=== PATIENT | female | born 1985 | race Two or more races ===

== ENCOUNTER 2022-10-14 15:45 | Outpatient (AMB) | payer OTHER, SELFPAY ==
--- NOTE | 2022-10-14 16:20 | HO.SPINEOV ---
Intake Intake Visit Reasons: Back pain Assessment & Plan Assessment & Plan (1) Lumbago: Code(s): M54.50 - Low back pain, unspecified Plan Asif is a 37-year-old female who is an established patient of ours from [facility] who presents today to discuss her ongoing symptoms which she states are the same since she last saw Dr. Browning in April of this year. She reports no progression of symptoms, and no interest in surgery at this time. We discussed her lumbar spondylolisthesis again, and discussed the possibility of a right L5 foraminotomy. She is not agreeable to this. She states that she continues to have the same low back pain with the same numbness and tingling over the top of her R foot. She states she is no longer going to physical therapy. During our visit today she expressed concerns about her current housing situation, stating that the state is attempting to move her from a 1st floor apartment to a 6th floor apartment and she was hoping to obtain documentation from our office stating that she cannot ambulate up 6 flights of stairs daily. She was encouraged to bring her documentation from [facility] (which she has with her) to her primary care physician who could provide such a letter. This patient was seen alongside Dr. Browning. In summary, this patient has a grade 2 spondylolisthesis L5-S1 which produces back pain and a right L5 radiculopathy that is amenable to surgery. Total amount of time spent in this visit was 20 minutes in discussion of symptoms, MRI imaging results and subsequent plan of care. Ahmet Browning MD,PhD [facility] Coding Level of Care Code Est Pt Level 3 (28523) Diagnoses Lumbago M54.50
== END 2022-10-15 08:39 | disposition home or self-care (01) ==
PROVIDERS: Visit Provider Neurological Surgery
DX: M54.50 Low back pain, unspecified (principal)
CPT/HCPCS: 99213

== ENCOUNTER → 2022-10-14 15:45 | Outpatient (BNVA) | payer OTHER, SELFPAY | PROVIDERS: Visit Provider Neurological Surgery | DX: M54.50 Low back pain, unspecified (principal) | CPT/HCPCS: 99212 ==